=== PATIENT | male | born 1995 | race Hispanic/Latino ===

== ENCOUNTER 2019-06-06 18:17 | Emergency (ER) | payer BC ==
[~2019-06-06 18:17] MED LIST: Sodium Chloride Irrig Solution 250 ML BOT ONE
[2019-06-06] MEDS ORDERED: Adacel (T-DAP) 0.5 ML SYRINGE ONE (18:34)
[2019-06-06] MEDS ORDERED: Lidocaine 1% 20 ML MDV ONE (18:34)
[2019-06-06] MEDS ORDERED: HYDROcodone/Acetaminophen 5/325 mg Tablet ONE (18:49)
[2019-06-06] MEDS ORDERED: Cephalexin 500 MG CAP ONE (18:49)
[2019-06-06] MEDS ORDERED: Ibuprofen 800 MG TAB ONE (18:49)
--- NOTE | 2019-06-06 19:01 | RAD ---
EXAM: 3 views of the right middle finger HISTORY: Finger pain COMPARISON: None FINDINGS: There is no evidence of acute fracture or dislocation. Mild distal soft tissue swelling is seen. No degenerative changes are present. No radiopaque foreign body is seen. IMPRESSION: No evidence of acute osseous abnormality.
[2019-06-06] MEDS ORDERED: Bacitracin 1 PK ONE (19:04)
== END 2019-06-06 19:21 | disposition home or self-care (01) ==
LOC: MADERS 18:17
DX: S61.220A Laceration with foreign body of right index finger without damage to nail, initial encounter (principal); Z23 Encounter for immunization; W26.8XXA Contact with other sharp object(s), not elsewhere classified, initial encounter
CPT/HCPCS: 12001; 90471; 90715; J2001

== ENCOUNTER 2019-06-19 07:48 | Emergency (ER) | payer BC | END 2019-06-19 08:33 | disposition home or self-care (01) | LOC: MADERS 07:48 | DX: S61.220D Laceration with foreign body of right index finger without damage to nail, subsequent encounter (principal); W26.8XXD Contact with other sharp object(s), not elsewhere classified, subsequent encounter ==